=== PATIENT | male | born 1950 | race Caucasian/White ===

== ENCOUNTER 2016-12-30 05:15 | Inpatient (IN) | payer MEDICARE, OTHER ==
[2016-12-25 10:48] LABS: BASOPHILS 0.4 %; BASOPHILS ABSOLUTE 0.03 10/3/uL (0.0-0.16); EOSINOPHILS 2.4 %; EOSINOPHILS ABSOLUTE 0.16 10/3/uL (0.0-0.53); HEMATOCRIT 42.5 % (40.0-51.0); HEMOGLOBIN 13.8 g/dL (13.6-17.8); IMMATURE GRANULOCYTES 0.3 %; IMMATURE GRANULOCYTES ABSOLUTE 0.02 10/3/uL (0.0-0.11); LYMPHOCYTES ABSOLUTE 1.48 10/3/uL (0.67-4.30); MEAN CORPUS HGB CONC 32.5 g/dL (32.0-36.0); MEAN CORPUSCULAR HEMOGLOB 30.2 pg (26.0-34.0); MEAN PLATELET VOLUME 10.1 fL (9.2-13.0); MONOCYTES ABSOLUTE 0.47 10/3/uL (0.21-1.20); NEUTROPHILS 67.9 %; NEUTROPHILS ABSOLUTE 4.57 10/3/uL (2.02-8.40); PLATELET COUNT 208 10/3/uL (150-400); RBC DISTRIBUTION WIDTH 15.8 % (12.0-16.0); RED CELL COUNT 4.57 10/6/uL (4.7-6.1); WHITE BLOOD CELLS 6.7 10/3/uL (4.5-10.5)
[2016-12-25 10:51] LABS: MANUAL DIFF NO %
[2016-12-25 10:53] LABS: INTERNATIONAL NORMAL RATI 1.3 UNITS (-); PARTIAL THROMBO TIME 36.4 SEC (22.5-37.2); PROTIME (NOT ORD) 15.8 SEC (12.0-14.5)
[2016-12-25 10:56] LABS: BUN (BLOOD UREA NITROGEN) 27 MG/DL (6-23); CALCIUM, SERUM 9.3 MG/DL (8.5-10.4); CHLORIDE, SERUM 105 MMOL/L (96-112); CO2 (CARBON DIOXIDE) 29 MMOL/L (24-34); CREATININE 1.19 MG/DL (0.70-1.30); GFR AFRICAN AMERICAN 73 ML/MIN (>=60); GFR NON AFRICAN AMERICAN 63 ML/MIN (>=60); GLUCOSE, SERUM 87 MG/DL (60-99); POTASSIUM, SERUM 4.3 MMOL/L (3.5-5.3); SODIUM, SERUM 143 MMOL/L (135-148)
--- NOTE | ~2016-12-30 | OP ---
Record Of Operation [facility] [address] [facility] [place]. [address] NAME: LAZARO SOLOMON : 48 STATUS : ADM IN [facility]#: [id number] AGE: 66 ADM/REG DATE : 12/30/16 MR#: [id number] REPORT SERV DATE: 12/31/16 DICTATED BY: FREDI ALAMO DATE: 12/30/16 REPORT STATUS : Draft TRANSCRIBED BY: MODL DATE: 12/30/16 DATE OF PROCEDURE: 12/30/2016 PREOPERATIVE DIAGNOSIS: Bladder cancer, T4 N0 M0. POSTOPERATIVE DIAGNOSIS: Bladder cancer, T4 N0 M0. PROCEDURE PERFORMED: 1. Radical cystoprostatectomy. 2. Urethrectomy. 3. Bilateral pelvic lymphadenectomy. 4. Ileal conduit urinary diversion. SURGEON: Fredi Alamo M.D. ANESTHESIA: General. CARD CUTTER HELPER: Mrs. Zuniga and Mrs Everett. ANESTHESIA: General. BLOOD LOSS: 1200 mL. COMPLICATIONS: Rectal deserosalization was repaired by Dr. Gloria. SPECIMEN: 1. Bladder with prostate. 2. Bulbar, penile, and membranous urethra. 3. Bilateral pelvic lymphadenectomy. 4. Iliac and obturator lymph nodes. COMPLICATIONS: Small area of the rectum was deserosalized on the left during dissection. This was repaired by Dr. Gloria and repair appeared water-tight. INDICATIONS: Mr. Solomon is a 66-year-old ex-smoker with a history of bladder cancer. He was found to have progressed to muscle. He failed to clear his bladder with multiple transurethral resections and his disease progressed to prostatic stromal invasion at his last TURBT in July. He opted for neoadjuvant chemotherapy. He has completed that, presents for radical cystoprostatectomy. Urethra was removed as well given the prostatic stromal invasion. TECHNIQUE: Informed consent was obtained. Mefoxin was given preop. The stromal site had been marked by the enterostomal therapy nurses. He was brought to the operating room. General endotracheal anesthesia was administered. A nasogastric tube was placed. He was positioned in low lithotomy. The abdomen, penis, scrotum, and perineum were shaved, prepped, and draped in a sterile fashion. Rigid suprapubic midline incision was made with Record Of Operation [facility] [address] [place]. [address] NAME: LAZARO SOLOMON : 48 STATUS : ADM IN PAT#: [id number] AGE: 66 ADM/REG DATE : 12/30/16 MR#: [id number] REPORT SERV DATE: 12/31/16 DICTATED BY: FREDI ALAMO DATE: 12/30/16 REPORT STATUS : Draft TRANSCRIBED BY: CHELY DATE: 12/30/16 Bovie. The fascia was divided in the midline, and the peritoneal cavity was entered. There was no gross peritoneal disease. There were some adhesions between the sigmoid colon and the pelvis. These were lysed sharply. The bowel was packed superiorly. I identified the right ureter as it coursed over the iliac vessels. This was circumferentially mobilized with blunt dissection and Bovie to the level of the distal ureter where it inserted into the bladder. I also next identified the left ureter, was identified coursing over the iliac vessels. It was circumferentially mobilized and dissected down to the bladder. At this point, the anterior peritoneal reflection of the bladder was reflected on the right and left with Bovie, and the vasa were divided on the right and the left. There is no palpable adenopathy. Both the distal ureters were clamped, divided, and spatulated. The left ureter was brought underneath the sigmoid colon into the right pelvis where these were left draining for the rest of the extirpation. The superior vesical pedicles were mobilized with blunt dissection and the LigaSure. The peritoneum was incised in the cul-de-sac down to the junction between the bladder base and rectum. The superficial and deep dorsal veins were divided with ligature and deep dorsal vein was oversewn distally for hemostasis with 0 Vicryl. Endopelvic fascia was identified and incised with Bovie on the right and the left. The prostatic pedicles were identified and clipped. His tumor had been primarily within the prostatic urethra and the prostate was more adherent to the rectum than is typical. Blunt dissection was carried out with a right angle and Bovie to dissect the base of the prostate off the rectum. There was one small area of rectal deserosalization. No through and through injury. No spillage. At the prostatic apex, the anterior attachments and the urethra was divided. The prostate and bladder were sent for to pathology. Ureteral margins were negative. Pelvis was packed. I re-gloved and made a midline perineal incision with Bovie. The bulbocavernosus muscle was divided with Bovie. The bulbar urethra was identified. It was circumferentially mobilized with blunt dissection and Bovie. I placed a vessel loop around this. Dissection was carried out distally to the distal bulb and then the penis was inverted with further dissection the penile urethra with Bovie out to the fossa navicularis. At this point, the urethra was divided. The distal urethra at the fossa navicularis was oversewn with 2-0 Vicryl. The penis was allowed to retract back into the anatomic position. The wound was irrigated. I used a Bovie to dissect out the proximal bulbar urethra and the margin at the membranous urethra. The bulbar arteries were bovied and oversewn with 2-0 Vicryl with a UR6. The urogenital hiatus was reapproximated with interrupted 2-0 Vicryl. The perineal wound was irrigated and closed with 2-0 Vicryl and the skin closed with a running 2-0 chromic. At this point, Dr. Gloria scrubbed into the case. I inspected the rectum. There was a small area of deserosalization. He closed this primarily per his dictated report. The rectum was irrigated and closure was found to be water tight. I re-gowned and gloved and performed a right pelvic lymphadenectomy. Lymph nodes were harvested from the external iliac, internal iliac, and obturator fossa. Care was taken to avoid injury to the vessels. Lymphostasis was obtained with clips. The obturator nerve was identified and uninjured. In a similar fashion, left pelvic lymphadenectomy was performed again with external iliac, internal iliac, and obturator lymph nodes harvested. There was Record Of Operation [address] [address] NAME: LAZARO SOLOMON : 48 STATUS : ADM IN PAT#: [id number] AGE: 66 ADM/REG DATE : 12/30/16 MR#: [id number] REPORT SERV DATE: 12/31/16 DICTATED BY: FREDI ALAMO DATE: 12/30/16 REPORT STATUS : Draft TRANSCRIBED BY: MODL DATE: 12/30/16 no gross adenopathy. Pelvis was irrigated. Hemostasis was confirmed. I harvested a suitable segment of omentum based on the right-sided vascular pedicle. This was left in the right pericolic gutter and secured the prostatic fossa/urogenital diaphragm at the end of the case. Dr. Gloria harvested a suitable segment of ilium. After bowel continuity was re- established, I over sewed the retroperitoneal end of the conduit with a running 2-0 Vicryl. The stomal end of the conduit was opened with Bovie so as to excise the staple line. Interior contents were evacuated with irrigation and pull tip sucker. Ureteral margins were reported as clear at this point. Ureters had already been spatulated in standard Gloria-type ureteral-intestinal anastomosis was performed. First the left ureter was anastomosed to the retroperitoneal end of the conduit with proximally 12 interrupted PDS suture. This was a tension-free jehepj-cs-nugvlb anastomosis. A 7-Frisian ureteral stent was placed prior to completing last anastomotic sutures. In a similar fashion, 2 cm distal along the conduit at the antimesenteric border, I performed a right ureteral intestinal anastomosis in a standard Gloria-type, for which 4-0 PDS was utilized for this tension-free sydbmx-hb-deapwi anastomosis. The both stents were brought out the stoma in a temporarily secured with chromic suture. The pelvis was irrigated. I secured the segment of omentum over the prostatic fossa with a single 2-0 Vicryl suture. A previously marked stoma site was used. The skin and subcutaneous tissue was excised with Bovie down to the anterior rectus fascia. The fascia was opened linearly. Muscle splitting was performed. The posterior fascia was incised with Bovie. There was a two fingerbreadth opening. First, ureteral stents and then the conduit were delivered through the stoma. The conduit was secured at the level of fascia with 2-0 interrupted Vicryl x2. The stoma was matured in a Milly fashion with 3-0 Vicryl. The remainder of the stoma was matured with 3-0 Vicryl as well. At this point, the stents were secured at the skin level with a 4-0 nylon suture. A drain was placed through a separate stab incision in the left lower quadrant. This drain the pelvis and sat near the retroperitoneal end of the conduit. The drain was secured. Sponge and needle counts were correct. NG-tube inspected and found to be in sufficient position. I closed the abdominal wall fascia with running #1 PDS suture with additional 0 Vicryl internal retention sutures. The wound was irrigated and closed with subcuticular Monocryl. The stomal appliance was applied. Scrotal support was applied with Xeroform on the perineal incision. He tolerated procedures extubated in recovery in satisfactory condition. Postop plan is for NG tube and bowel rest until return of bowel function. WHITNEY/CHELY Fredi Alamo M.D. Record Of Operation [address] [address] NAME: LAZARO SOLOMON : 48 STATUS : ADM IN [facility]#: [id number] AGE: 66 ADM/REG DATE : 12/30/16 MR#: [id number] REPORT SERV DATE: 12/31/16 DICTATED BY: FREDI ALAMO DATE: 12/30/16 REPORT STATUS : Draft TRANSCRIBED BY: CHELY DATE: 12/30/16 / [id number] CC: Fredi Alamo M.D.
--- NOTE | ~2016-12-30 | DS ---
Discharge Summary [facility] [address] [place]. [address] NAME: LAZARO SOLOMON : 48 STATUS : DIS IN PAT#: [id number] AGE: 66 ADM/REG DATE : 12/30/16 MR#: [id number] REPORT SERV DATE: 01/19/17 DICTATED BY: FREDI ALAMO DATE: 01/18/17 REPORT STATUS : Draft TRANSCRIBED BY: CHELY DATE: 01/18/17 Data Collection from hospitalization DISCHARGE DIAGNOSIS(ES): 1. Bladder cancer, T4 N0 M0. 2. Hypertension. 3. Peripheral vascular disease. 4. Osteoarthritis. 5. Depression. 6. History of polycythemia vera. 7. Occasional tobacco use. 8. Anemia. CONSULTATIONS: Wyatt Gloria M.D.; Jacob López M.D. PROCEDURES PERFORMED: 1. Radical cysto prostatectomy, urethrectomy, bilateral pelvic lymphadenectomy, ileal conduit urinary diversion, 12/30/2016. 2. Ileal harvest for conduit, 12/30/2016. 3. Left lower extremity arterial blood flow study, 01/07/2017. 4. Venous Doppler ultrasound of the left lower extremity, 01/07/2017. PATHOLOGY: Left distal ureter margin - negative for dysplasia or carcinoma. Urinary bladder and prostate cystoprostatectomy - ulceration and calcification of previous TURBT site at left lateral wall, negative for residual invasive urothelial carcinoma or carcinoma in situ. Right ureteral margin negative prostatic adenocarcinoma urethrectomy - negative for residual invasive urothelial carcinoma or carcinoma in situ. Urethral margin negative. Right iliac lymph node dissection - 5 lymph nodes, negative for metastasis (0/5). Right obturator lymph node dissection - 1 lymph node negative for metastasis (0/1). Left obturator lymph node dissection - 5 lymph nodes, negative for metastasis (0/5). Left iliac lymph node dissection - 3 lymph nodes negative for metastasis 0/3, segment of vas deferens present. MEDICATIONS: Eliquis 5 mg twice a day, aspirin 81 mg daily, atenolol and chlorthalidone as instructed, vitamin B12 1000 mcg daily, folic acid 1 mg daily, [place] 5/325 one to two tablets every six hours as needed, Prinivil 20 mg daily, niacin 500 mg daily, Lyrica 50 mg three times a day, vitamin B6 25 mg daily, Zoloft 50 mg every morning. CONDITION AT DISCHARGE: Stable. DISPOSITION: The patient was discharged home to be followed by home health care on a regular diet with activities as instructed. He would follow up with me two weeks following discharge. HOSPITAL COURSE: This is a 66-year-old ex-smoker with a history of bladder cancer, was found to have progressed to the muscle. He failed to clear his bladder with multiple transurethral resections, then his disease progressed to prostatic stromal invasion at his last TURBT in July. He opted for neoadjuvant chemotherapy. He has completed that and presented at this time for radical cysto prostatectomy. Urethra was removed as well given Discharge Summary [facility] [address] [facility] [place]. [address] NAME: LAZARO SOLOMON : 48 STATUS : DIS IN PAT#: [id number] AGE: 66 ADM/REG DATE : 12/30/16 MR#: [id number] REPORT SERV DATE: 01/19/17 DICTATED BY: FREDI ALAMO DATE: 01/18/17 REPORT STATUS : Draft TRANSCRIBED BY: CHELY DATE: 01/18/17 the prostatic stromal invasion. Treatment options were discussed and it was elected to proceed with surgical intervention. He was admitted to the hospital at this time for further evaluation and treatment. Upon admission, he was taken to the operating room where he underwent the above-mentioned procedure by myself and Dr. Wyatt Gloria. He tolerated these well and there were no complications. On postop day #1, he had good pain control. NG tube remained in place. He was being held n.p.o. Creatinine level was 1.31. He was going to be transferred to the floor. On the , he was awake and alert. The ostomy was pink. He continued to have good pain control with the epidural catheter in place. IV fluids were decreased. He had been transferred to the floor. Pathology results were reviewed. On 01/02/2017, the epidural catheter was removed and the tip was intact. His urine remained clear. NG tube was still in place. The NG tube output had increased. IV pain medication continued. He was improving clinically. Pain control continued to improve. He began to feel somewhat better. The NG tube was clamped. He was beginning to pass flatus. He had no nausea. On the , small bowel followthrough was performed. His drain remained in place. He continued to pass flatus. His abdomen was soft, nondistended, and nontender. The next day, he had multiple bowel movements. On 01/06/2017, he did have some nausea. He was having bowel movements and passing flatus. Creatinine level was 1.16. He remained afebrile. He was making slow progress. He remained on a liquid diet at this time. He was evaluated by Physical Therapy. The next day, a left lower extremity arterial blood flow study was performed as well as a venous Doppler ultrasound of the left lower extremity. There was extensive occlusive left lower extremity DVT from the common femoral vein to the popliteal vein. The NG tube had been replaced. Eliquis was going to be resumed. Occupational Therapy evaluated the patient. TPN therapy was going to be provided. He was seen by Dr. Jacob López. The patient has a deep venous thrombosis in the left lower extremity. Therapeutic heparin drip would be provided until he was able to tolerate oral intake. His nausea, vomiting, and diarrhea improved. His creatinine level was 1.79. His bowel movement frequency began to decrease. TPN therapy continued. A PICC line was inserted. On the , the NG tube was clamped. White count was 8. His lungs were clear. Creatinine level was 1.45. Clear liquids continued. We encouraged him to ambulate. On the , he was tolerating clear liquids after the NG tube had been removed. He was having large formed bowel movement that morning. His abdomen was soft, nondistended and nontender. Creatinine level improved to 1.17. He continued to progress. He said he felt well. Discharge planning was performed. TPN therapy was being weaned. Eliquis was being started. Discharge planning was performed. On 01/12/2017, he was feeling much better. Discharge instructions were given. Due to his improved and stable condition, he was discharged home to be followed by home health care with the above-stated instructions. Information collected by: Jaclyn Sin I submit the above information as my discharge summary. TG/MODL Discharge Summary [facility] [address] [place]. [address] NAME: LAZARO SOLOMON : 48 STATUS : DIS IN PAT#: [id number] AGE: 66 ADM/REG DATE : 12/30/16 MR#: [id number] REPORT SERV DATE: 01/19/17 DICTATED BY: FREDI ALAMO DATE: 01/18/17 REPORT STATUS : Draft TRANSCRIBED BY: MODL DATE: 01/18/17 Fredi Alamo M.D. / [id number] CC: Olive Joshi M.D. Mark W Fugate, M.D. William Cockerham, M.D.
--- NOTE | ~2016-12-30 | HP ---
History And Physical [address] [address] NAME: LAZARO SOLOMON : 48 STATUS : ADM IN [facility]#: [id number] AGE: 66 ADM/REG DATE : 12/30/16 MR#: [id number] REPORT SERV DATE: 12/30/16 DICTATED BY: FREDI ALAMO DATE: 12/30/16 REPORT STATUS : Draft TRANSCRIBED BY: CHELY DATE: 12/30/16 DATE OF ADMISSION: 12/30/2016 CHIEF COMPLAINT: Bladder cancer. HISTORY OF PRESENT ILLNESS: Mr. Solomon is a 66-year-old with history of bladder cancer. Initially, this was diagnosed in 2014. It was initially T1 high-grade multifocal. He had resection elsewhere. I saw him in consultation for persistence. He has had persistent tumor in his bladder. He had induction BCG with repeat resection showing progression of disease within the prostatic urethra. This resection showed prostatic stromal invasion. He opted for neoadjuvant chemotherapy before radical cystoprostatectomy. He had some nausea and weight loss during his chemo. He has finished this 6 weeks ago and now presents for radical cystoprostatectomy with en bloc urethrectomy, node dissection, and ileal conduit urinary diversion. PAST MEDICAL HISTORY: Bladder cancer, DVT, left below-knee amputation, shoulder surgery. MEDICATIONS: Aspirin held, Ditropan, Eliquis, Lyrica, mirtazapine, niacin, Wellbutrin, Pyridium. ALLERGIES: NONE KNOWN. FAMILY HISTORY: Kidney stones. SOCIAL HISTORY: , nondrinker, nonsmoker though he smoked in the past. REVIEW OF SYSTEMS: No headaches, fevers, chills, nausea, vomiting, back pain, or gross hematuria. His weight has been stable for the last few weeks. No chest pain. No shortness of breath. He does have intermittent dysuria, intermittent urge incontinence, and depressive symptoms. PHYSICAL EXAMINATION: VITAL SIGNS: 170/100, pulse 67, respirations 14. Afebrile. GENERAL: Pleasant, 66-year-old, in no acute distress. EYES: Sclerae anicteric. LUNGS: Clear. HEART: Regular rate and rhythm. CHEST: Clear anteriorly. ABDOMEN: Soft, nontender, nondistended. Stoma sites marked in the right lower quadrant. No rebound or guarding. No right or left CVA tenderness. No palpable abdominal masses. Phallus circumcised. No palpable urethral mass or tenderness. Testes normally descended. No umbilical or inguinal hernia. Left lower extremity amputation, no supraclavicular or inguinal adenopathy. He is oriented to person, place, time, and situation. LABORATORY DATA: Creatinine is 1.19. Hematocrit 42. Pathology, transurethral section from [facility] [place] And Physical [address] [address] NAME: LAZARO SOLOMON : 48 STATUS : ADM IN PAT#: [id number] AGE: 66 ADM/REG DATE : 12/30/16 MR#: [id number] REPORT SERV DATE: 12/30/16 DICTATED BY: FREDI ALAMO DATE: 12/30/16 REPORT STATUS : Draft TRANSCRIBED BY: CHELY DATE: 12/30/16 07/30/2016 showed high-grade TCC with prostatic stromal invasion as well as tumor elsewhere in the bladder at the right lateral wall. IMPRESSION: 1. Bladder cancer, T4 N0 M0. 2. History of deep vein thrombosis. PLAN: The patient is admitted for radical cystoprostatectomy with en bloc urethrectomy and ileal conduit urinary diversion. He understands the risk of bleeding, infection, tumor recurrence, wound complication, anastomotic stricture, and stomal complications. He has held his Eliquis. We will resume subcu heparin in the immediate postop period and hopefully, we will be able to get him back on his Eliquis at 5-10 days postop. WHITNEY/CHELY Fredi Alamo M.D. / [id number] CC: Olive Joshi M.D.
--- NOTE | ~2016-12-30 | OP ---
Record Of Operation [facility] [address] [place]. [address] NAME: LAZARO SOLOMON : 48 STATUS : ADM IN PAT#: [id number] AGE: 66 ADM/REG DATE : 12/30/16 MR#: [id number] REPORT SERV DATE: 12/30/16 DICTATED BY: WYATT GLORIA DATE: 12/30/16 REPORT STATUS : Draft TRANSCRIBED BY: MODL DATE: 12/30/16 DATE OF PROCEDURE: 12/30/2016 PREOPERATIVE DIAGNOSIS: Bladder cancer. POSTOPERATIVE DIAGNOSIS: Bladder cancer. OPERATION PERFORMED: Ileal harvest for conduit. SURGEON: Wyatt Gloria M.D. ANESTHESIA: General. ESTIMATED BLOOD LOSS: Less than 10 mL. IV FLUIDS: Adequate. DESCRIPTION OF PROCEDURE: The patient had undergone a cystectomy. I was asked to evaluate the anterior rectum. There was a thinned-out place area on the anterior rectum but not a through and through tear. This was imbricated with 3-0 silk sutures. The rectum was then insufflated under saline, showed no evidence of leak. We then turned our attention towards the ileal conduit. The small bowel was evaluated and traced to the ileocecal valve. We went approximately 20- 25 cm proximal. A silk suture was placed in the antimesenteric border. The small bowel was then transected using a 75 ANTONIO stapler. We then traced it back approximately 25 cm proximal and transected the small bowel using a 75 ANTONIO stapler. We then palpate mesentery laterally. The mesentery was taken down leaving blood supply intact using a LigaSure device. We then took the conduit lateral. We performed a [id number]-zn-ulii functional end-to-end ileal anastomosis. We placed a posterior layer of 3-0 silk sutures. We cut the corners off the staple line. We then placed a Endo-ANTONIO stapler down the both lumens to create a common enterotomy. We closed the butt-end of the common enterotomy using a TA60 stapler. We then amputated the anterior staple line. We closed the mesentery using 3-0 silk sutures. We palpated the anastomosis, it was intact. The conduit was evaluated by Dr. Cuevas and felt to be adequate. The remainder of the procedure was turned over to Dr. Cuevas. ANANT/CHELY Wyatt Gloria M.D. / [id number] CC: Record Of Operation [facility] [address] [place]. [address] NAME: LAZARO SOLOMON : 48 STATUS : ADM IN [facility]#: [id number] AGE: 66 ADM/REG DATE : 12/30/16 MR#: [id number] REPORT SERV DATE: 12/30/16 DICTATED BY: WYATT GLORIA DATE: 12/30/16 REPORT STATUS : Draft TRANSCRIBED BY: CHELY DATE: 12/30/16 Norman Cuevas M.D.
[~2016-12-30 05:15] MED LIST: ASA5GR PO; ASAB PO; ATEN25 PO; C5 PO; COUMADIN7.5 MG PO; CYANO1000T; CYANO1000T PO; DITRO5 PO; DSS PO; DURA100 TOP; ELIQUIS 5 MG TAB5 MG PO; FOLIC PO; HYDREA PO; LEVAQUIN750 MG PO; LYRICA50 PO; NEUR300 PO; NIACIN 500 PO; P10 PO; PCET PO; PERCOCET1 TA4 PO; PRIN20 PO; PROAIR HFA INH; REMERON30 MG PO; TENORETIC1 TAB PO; VITAMIN B-625 MG PO; WELLXL150 PO; ZOL50 PO; [UNRECOGNIZED DRUG - OTHER] PO; [UNRECOGNIZED DRUG - OTHER] PO
[2016-12-30 10:59] LABS: BE (BASE EXCESS) -1.2 MEQ/L (0 +/- 2.5); CARBOXYHEMOGLOBIN 0.3 % (0-3); HCO3 (ACTUAL BICARBONATE) 23.5 MEQ/L (23-27); HEMOBLOGIN CONTENT 11.6 G/DL (14-18); INSTRUMENT SERIAL # 11843; METHEMOGLOBIN 0.7 % (0-3); O2 CONTENT 16.6 VOL% (18-24); OPERATOR ID 18642; PCO2 (CO2 TENSION) 40 MMHG (35-45); PO2 (O2 TENSION) 259 MMHG (79-93); SAMPLE Arterial; pH 7.39 (7.37-7.43)
[2016-12-30 15:48] LABS: HEMATOCRIT 31.2 % (40.0-51.0); HEMOGLOBIN 10.2 g/dL (13.6-17.8)
[2016-12-30 15:59] LABS: BUN (BLOOD UREA NITROGEN) 27 MG/DL (6-23); CALCIUM, SERUM 8.4 MG/DL (8.5-10.4); CHLORIDE, SERUM 109 MMOL/L (96-112); POTASSIUM, SERUM 3.9 MMOL/L (3.5-5.3); SODIUM, SERUM 144 MMOL/L (135-148)
[2016-12-30 16:03] LABS: CO2 (CARBON DIOXIDE) 23 MMOL/L (24-34); CREATININE 1.85 MG/DL (0.70-1.30); GFR AFRICAN AMERICAN 43 ML/MIN (>=60); GFR NON AFRICAN AMERICAN 37 ML/MIN (>=60); GLUCOSE, SERUM 151 MG/DL (60-99)
[2016-12-31 04:57] LABS: BASOPHILS 0 %; EOSINOPHILS 0.2 %; EOSINOPHILS ABSOLUTE 0.01 10/3/uL (0.0-0.53); HEMOGLOBIN 8.8 g/dL (13.6-17.8); IMMATURE GRANULOCYTES 0.4 %; IMMATURE GRANULOCYTES ABSOLUTE 0.02 10/3/uL (0.0-0.11); LYMPHOCYTES 12.4 %; LYMPHOCYTES ABSOLUTE 0.67 10/3/uL (0.67-4.30); MEAN CORPUS HGB CONC 33.1 g/dL (32.0-36.0); MEAN CORPUSCULAR HEMOGLOB 30.9 pg (26.0-34.0); MEAN CORPUSCULAR VOLUME 93.3 fL (80-100); MEAN PLATELET VOLUME 9.6 fL (9.2-13.0); MONOCYTES 8.3 %; MONOCYTES ABSOLUTE 0.45 10/3/uL (0.21-1.20); NEUTROPHILS 78.7 %; NEUTROPHILS ABSOLUTE 4.26 10/3/uL (2.02-8.40); RBC DISTRIBUTION WIDTH 15.9 % (12.0-16.0); WHITE BLOOD CELLS 5.4 10/3/uL (4.5-10.5)
[2016-12-31 05:01] LABS: HEMATOCRIT 26.6 % (40.0-51.0); MANUAL DIFF NO %; PLATELET COUNT 142 10/3/uL (150-400); RED CELL COUNT 2.85 10/6/uL (4.7-6.1)
[2016-12-31 05:04] LABS: INTERNATIONAL NORMAL RATI 1.6 UNITS (-)
[2016-12-31 05:12] LABS: CALCIUM, SERUM 7.9 MG/DL (8.5-10.4); CHLORIDE, SERUM 109 MMOL/L (96-112); CO2 (CARBON DIOXIDE) 25 MMOL/L (24-34); GFR AFRICAN AMERICAN 65 ML/MIN (>=60); GFR NON AFRICAN AMERICAN 56 ML/MIN (>=60); GLUCOSE, SERUM 128 MG/DL (60-99); POTASSIUM, SERUM 3.7 MMOL/L (3.5-5.3); SODIUM, SERUM 144 MMOL/L (135-148)
[2016-12-31 05:14] LABS: BUN (BLOOD UREA NITROGEN) 23 MG/DL (6-23); CREATININE 1.31 MG/DL (0.70-1.30)
[2017-01-01 04:12] LABS: HEMATOCRIT 26.4 % (40.0-51.0); HEMOGLOBIN 8.5 g/dL (13.6-17.8)
[2017-01-01 04:24] LABS: ALBUMIN 2.6 G/DL (3.5-5.0); CHLORIDE, SERUM 107 MMOL/L (96-112); CO2 (CARBON DIOXIDE) 29 MMOL/L (24-34); CREATININE 1.14 MG/DL (0.70-1.30); GFR AFRICAN AMERICAN 77 ML/MIN (>=60); GFR NON AFRICAN AMERICAN 66 ML/MIN (>=60); GLUCOSE, SERUM 108 MG/DL (60-99); SGOT(AST) 17 U/L (5-40); SGPT(ALT) 16 U/L (5-65); SODIUM, SERUM 143 MMOL/L (135-148); TOTAL BILIRUBIN 0.5 MG/DL (0-1.2)
[2017-01-01 04:25] LABS: A/G RATIO 1.3 (0.7-1.9); ALKALINE PHOSPHATASE 37 U/L (45-117); BUN (BLOOD UREA NITROGEN) 17 MG/DL (6-23); TOTAL PROTEIN 4.6 G/DL (6.0-8.5)
[2017-01-02 06:33] LABS: HEMATOCRIT 28.2 % (40.0-51.0); HEMOGLOBIN 9.4 g/dL (13.6-17.8)
[2017-01-02 06:54] LABS: ALBUMIN 2.6 G/DL (3.5-5.0); ALKALINE PHOSPHATASE 41 U/L (45-117); BUN (BLOOD UREA NITROGEN) 17 MG/DL (6-23); CALCIUM, SERUM 8.8 MG/DL (8.5-10.4); CHLORIDE, SERUM 104 MMOL/L (96-112); CO2 (CARBON DIOXIDE) 30 MMOL/L (24-34); GFR AFRICAN AMERICAN 90 ML/MIN (>=60); GFR NON AFRICAN AMERICAN 78 ML/MIN (>=60); GLOBULIN 2.6 G/DL (2.5-4.1); GLUCOSE, SERUM 125 MG/DL (60-99); POTASSIUM, SERUM 3.8 MMOL/L (3.5-5.3); SGOT(AST) 15 U/L (5-40); SGPT(ALT) 18 U/L (5-65); SODIUM, SERUM 143 MMOL/L (135-148); TOTAL PROTEIN 5.2 G/DL (6.0-8.5)
[2017-01-03 04:32] LABS: HEMATOCRIT 28.6 % (40.0-51.0); HEMOGLOBIN 9.6 g/dL (13.6-17.8)
[2017-01-03 04:44] LABS: CALCIUM, SERUM 9.3 MG/DL (8.5-10.4); CHLORIDE, SERUM 104 MMOL/L (96-112); CO2 (CARBON DIOXIDE) 29 MMOL/L (24-34); GFR AFRICAN AMERICAN 102 ML/MIN (>=60); GFR NON AFRICAN AMERICAN 88 ML/MIN (>=60); GLUCOSE, SERUM 122 MG/DL (60-99); POTASSIUM, SERUM 3.8 MMOL/L (3.5-5.3); SODIUM, SERUM 140 MMOL/L (135-148)
[2017-01-03 04:50] LABS: BUN (BLOOD UREA NITROGEN) 21 MG/DL (6-23)
[2017-01-05 06:26] LABS: BASOPHILS 0.1 %; BASOPHILS ABSOLUTE 0.01 10/3/uL (0.0-0.16); EOSINOPHILS 0.6 %; EOSINOPHILS ABSOLUTE 0.05 10/3/uL (0.0-0.53); HEMOGLOBIN 10.8 g/dL (13.6-17.8); IMMATURE GRANULOCYTES 0.5 %; IMMATURE GRANULOCYTES ABSOLUTE 0.04 10/3/uL (0.0-0.11); LYMPHOCYTES 6.5 %; LYMPHOCYTES ABSOLUTE 0.52 10/3/uL (0.67-4.30); MANUAL DIFF NO %; MEAN CORPUS HGB CONC 32.7 g/dL (32.0-36.0); MEAN CORPUSCULAR HEMOGLOB 30.6 pg (26.0-34.0); MEAN CORPUSCULAR VOLUME 93.5 fL (80-100); MEAN PLATELET VOLUME 10.2 fL (9.2-13.0); MONOCYTES 7.8 %; MONOCYTES ABSOLUTE 0.62 10/3/uL (0.21-1.20); NEUTROPHILS 84.5 %; NEUTROPHILS ABSOLUTE 6.74 10/3/uL (2.02-8.40); PLATELET COUNT 171 10/3/uL (150-400); RBC DISTRIBUTION WIDTH 14.9 % (12.0-16.0); RED CELL COUNT 3.53 10/6/uL (4.7-6.1)
[2017-01-05 06:39] LABS: CALCIUM, SERUM 9.7 MG/DL (8.5-10.4); CHLORIDE, SERUM 105 MMOL/L (96-112); CO2 (CARBON DIOXIDE) 30 MMOL/L (24-34); CREATININE 1.28 MG/DL (0.70-1.30); GFR AFRICAN AMERICAN 67 ML/MIN (>=60); GFR NON AFRICAN AMERICAN 58 ML/MIN (>=60); GLUCOSE, SERUM 120 MG/DL (60-99); SODIUM, SERUM 143 MMOL/L (135-148)
[2017-01-05 06:42] LABS: BUN (BLOOD UREA NITROGEN) 35 MG/DL (6-23)
[2017-01-06 06:19] LABS: HEMOGLOBIN 9.2 g/dL (13.6-17.8)
[2017-01-06 06:20] LABS: HEMATOCRIT 28.5 % (40.0-51.0)
[2017-01-06 06:29] LABS: BUN (BLOOD UREA NITROGEN) 35 MG/DL (6-23); CALCIUM, SERUM 9.1 MG/DL (8.5-10.4); CHLORIDE, SERUM 107 MMOL/L (96-112); CO2 (CARBON DIOXIDE) 28 MMOL/L (24-34); CREATININE 1.16 MG/DL (0.70-1.30); GFR AFRICAN AMERICAN 75 ML/MIN (>=60); GFR NON AFRICAN AMERICAN 65 ML/MIN (>=60); GLUCOSE, SERUM 116 MG/DL (60-99); POTASSIUM, SERUM 3.9 MMOL/L (3.5-5.3); SODIUM, SERUM 142 MMOL/L (135-148)
[2017-01-07 05:36] LABS: HEMOGLOBIN 10.5 g/dL (13.6-17.8)
[2017-01-07 05:40] LABS: HEMATOCRIT 32.3 % (40.0-51.0)
[2017-01-07 05:48] LABS: CHLORIDE, SERUM 106 MMOL/L (96-112); CO2 (CARBON DIOXIDE) 28 MMOL/L (24-34); CREATININE 1.64 MG/DL (0.70-1.30); GFR AFRICAN AMERICAN 49 ML/MIN (>=60); GFR NON AFRICAN AMERICAN 43 ML/MIN (>=60); GLUCOSE, SERUM 137 MG/DL (60-99); POTASSIUM, SERUM 4.4 MMOL/L (3.5-5.3); SODIUM, SERUM 144 MMOL/L (135-148)
[2017-01-07 05:53] LABS: BUN (BLOOD UREA NITROGEN) 44 MG/DL (6-23)
[2017-01-07 12:07] LABS: PHOSPHORUS, SERUM 3.8 MG/DL (2.5-4.5)
[2017-01-08 04:58] LABS: CALCIUM, SERUM 9.7 MG/DL (8.5-10.4); CHLORIDE, SERUM 105 MMOL/L (96-112); CO2 (CARBON DIOXIDE) 30 MMOL/L (24-34); CREATININE 1.79 MG/DL (0.70-1.30); GFR AFRICAN AMERICAN 44 ML/MIN (>=60); GFR NON AFRICAN AMERICAN 38 ML/MIN (>=60); GLUCOSE, SERUM 132 MG/DL (60-99); PHOSPHORUS, SERUM 3.4 MG/DL (2.5-4.5); POTASSIUM, SERUM 4.3 MMOL/L (3.5-5.3); SODIUM, SERUM 145 MMOL/L (135-148); TRIGLYCERIDE 147 MG/DL (< 150)
[2017-01-08 05:02] LABS: BUN (BLOOD UREA NITROGEN) 58 MG/DL (6-23)
[2017-01-09 01:39] LABS: BASOPHILS 0.3 %; BASOPHILS ABSOLUTE 0.02 10/3/uL (0.0-0.16); EOSINOPHILS 0.8 %; EOSINOPHILS ABSOLUTE 0.06 10/3/uL (0.0-0.53); HEMATOCRIT 29.8 % (40.0-51.0); HEMOGLOBIN 9.5 g/dL (13.6-17.8); IMMATURE GRANULOCYTES 0.9 %; IMMATURE GRANULOCYTES ABSOLUTE 0.07 10/3/uL (0.0-0.11); LYMPHOCYTES 15.8 %; LYMPHOCYTES ABSOLUTE 1.26 10/3/uL (0.67-4.30); MANUAL DIFF NO %; MEAN CORPUS HGB CONC 31.9 g/dL (32.0-36.0); MEAN CORPUSCULAR HEMOGLOB 29.8 pg (26.0-34.0); MEAN CORPUSCULAR VOLUME 93.4 fL (80-100); MEAN PLATELET VOLUME 9.8 fL (9.2-13.0); MONOCYTES ABSOLUTE 0.56 10/3/uL (0.21-1.20); NEUTROPHILS 75.2 %; NEUTROPHILS ABSOLUTE 6.01 10/3/uL (2.02-8.40); PLATELET COUNT 175 10/3/uL (150-400); RBC DISTRIBUTION WIDTH 14.9 % (12.0-16.0); RED CELL COUNT 3.19 10/6/uL (4.7-6.1)
[2017-01-09 01:54] LABS: BUN (BLOOD UREA NITROGEN) 57 MG/DL (6-23); CALCIUM, SERUM 9.2 MG/DL (8.5-10.4); CHLORIDE, SERUM 104 MMOL/L (96-112); CREATININE 1.45 MG/DL (0.70-1.30); GFR AFRICAN AMERICAN 57 ML/MIN (>=60); GFR NON AFRICAN AMERICAN 49 ML/MIN (>=60); GLUCOSE, SERUM 135 MG/DL (60-99); SODIUM, SERUM 147 MMOL/L (135-148)
[2017-01-09 01:59] LABS: CO2 (CARBON DIOXIDE) 35 MMOL/L (24-34); POTASSIUM, SERUM 3.3 MMOL/L (3.5-5.3)
[2017-01-10 04:37] LABS: CALCIUM, SERUM 9.2 MG/DL (8.5-10.4); CHLORIDE, SERUM 104 MMOL/L (96-112); CREATININE 1.17 MG/DL (0.70-1.30); GFR AFRICAN AMERICAN 74 ML/MIN (>=60); GFR NON AFRICAN AMERICAN 64 ML/MIN (>=60); GLUCOSE, SERUM 134 MG/DL (60-99); POTASSIUM, SERUM 3.5 MMOL/L (3.5-5.3); SODIUM, SERUM 144 MMOL/L (135-148)
[2017-01-10 04:39] LABS: BUN (BLOOD UREA NITROGEN) 53 MG/DL (6-23); CO2 (CARBON DIOXIDE) 30 MMOL/L (24-34)
[2017-01-11 06:15] LABS: CALCIUM, SERUM 9.4 MG/DL (8.5-10.4); CHLORIDE, SERUM 107 MMOL/L (96-112); CO2 (CARBON DIOXIDE) 27 MMOL/L (24-34); CREATININE 1.17 MG/DL (0.70-1.30); GFR AFRICAN AMERICAN 74 ML/MIN (>=60); GFR NON AFRICAN AMERICAN 64 ML/MIN (>=60); GLUCOSE, SERUM 119 MG/DL (60-99); SODIUM, SERUM 141 MMOL/L (135-148)
[2017-01-11 06:17] LABS: BUN (BLOOD UREA NITROGEN) 49 MG/DL (6-23)
[2017-01-12 06:48] LABS: BUN (BLOOD UREA NITROGEN) 51 MG/DL (6-23); CALCIUM, SERUM 10.1 MG/DL (8.5-10.4); CHLORIDE, SERUM 108 MMOL/L (96-112); CO2 (CARBON DIOXIDE) 25 MMOL/L (24-34); CREATININE 1.25 MG/DL (0.70-1.30); GFR AFRICAN AMERICAN 69 ML/MIN (>=60); GFR NON AFRICAN AMERICAN 59 ML/MIN (>=60); GLUCOSE, SERUM 97 MG/DL (60-99); POTASSIUM, SERUM 4.6 MMOL/L (3.5-5.3); SODIUM, SERUM 142 MMOL/L (135-148)
[2017-01-12] MEDS ORDERED: NORCO1 TA1 PO (16:45)
== END 2017-01-12 17:42 | disposition home health service (06) | DRG 654 ==
LOC: SDC/OF 05:15 → PACU 15:30 → MIC 17:53 → 4SO 01-01 15:19
PROVIDERS: Specialist; Urology
PROC: 0TTB0ZZ Resection of Bladder, Open Approach (ICD-10-PCS; principal; 2016-12-30 07:15)
PROC: 07BC0ZX Excision of Pelvis Lymphatic, Open Approach, Diagnostic (ICD-10-PCS; principal; 2016-12-30 07:15)
PROC: 0T1807C Bypass Bilateral Ureters to Ileocutaneous with Autologous Tissue Substitute, Open Approach (ICD-10-PCS; principal; 2016-12-30 07:15)
PROC: 0TBD0ZZ Excision of Urethra, Open Approach (ICD-10-PCS; principal; 2016-12-30 07:15)
PROC: 0VT00ZZ Resection of Prostate, Open Approach (ICD-10-PCS; principal; 2016-12-30 07:15)
PROC: 0TRB07Z Replacement of Bladder with Autologous Tissue Substitute, Open Approach (ICD-10-PCS; 2016-12-30 07:15)
PROC: 0DBB0ZZ Excision of Ileum, Open Approach (ICD-10-PCS; 2016-12-30 07:15)
PROC: 02HV33Z Insertion of Infusion Device into Superior Vena Cava, Percutaneous Approach (ICD-10-PCS; 2017-01-08)
PROC: 3E0436Z Introduction of Nutritional Substance into Central Vein, Percutaneous Approach (ICD-10-PCS; 2017-01-08)
PROC: 4A02X4A Measurement of Cardiac Electrical Activity, Guidance, External Approach (ICD-10-PCS; 2017-01-08)
DX: C67.9 Malignant neoplasm of bladder, unspecified (principal); K56.7 Ileus, unspecified; N17.9 Acute kidney failure, unspecified; E87.0 Hyperosmolality and hypernatremia; C61 Malignant neoplasm of prostate; Z89.612 Acquired absence of left leg above knee; Z86.718 Personal history of other venous thrombosis and embolism; Z89.512 Acquired absence of left leg below knee; Z79.899 Other long term (current) drug therapy; Z79.82 Long term (current) use of aspirin; I10 Essential (primary) hypertension; Z79.01 Long term (current) use of anticoagulants; F17.210 Nicotine dependence, cigarettes, uncomplicated; F32.9 Major depressive disorder, single episode, unspecified; I73.89 Other specified peripheral vascular diseases; M19.90 Unspecified osteoarthritis, unspecified site; D45 Polycythemia vera
CPT/HCPCS: 36415; 36569; 36600; 71010; 74000; 74020; 74250; 80048; 80053; 82330; 82570; 82805; 82962; 83735; 84100; 84132; 84134; 84478; 85014; 85018; 85025; 85610; 85730; 86850; 86900; 86901; 86920; 87493; 87493-59; 87641; 88305; 88307; 88309; 88331; 93926; 93971; 97162-GP; 97164-GP; 97166-GO; 97530-GP; A9270-GY; C1751; C1894; C2617; G8978-CJ-GP; G8978-CL-GP; G8979-CJ-GP; G8980-CJ-GP; G8987-CJ-GO; G8988-CJ-GO; G8989-CJ-GO; J0694; J1170; J2250; J2370; J2405; J2550; J2710; J2765; J3010; P9045